=== PATIENT | female | born 1980 | race African-American/Black ===

== ENCOUNTER → 2016-08-27 | Outpatient (REF) | payer SELFPAY | LOC: M LAB REF 16:54 | PROVIDERS: ATTEND Advanced Practice Midwife | DX: Z11.3 Encounter for screening for infections with a predominantly sexual mode of transmission (principal) ==

== ENCOUNTER → 2016-12-26 | Outpatient (CLI) | payer OTHER ==
[~2016-12-26] MED LIST: HYDR12.55 PO; PERC5TAB12 PO; ZOFR4TAB3 PO
== END ==
LOC: M WUC 15:13
PROVIDERS: ATTEND Physician Assistant
DX: R10.30 Lower abdominal pain, unspecified (principal)

== ENCOUNTER → 2017-01-09 | Outpatient (CLI) | payer OTHER | LOC: M LAB 14:29 | PROVIDERS: ATTEND Advanced Practice Midwife | DX: N91.1 Secondary amenorrhea (principal) ==

== ENCOUNTER → 2017-01-23 | Outpatient (CLI) | payer OTHER ==
--- NOTE | 2017-01-23 09:47 | REP ---
Obstetric ultrasound, first trimester: The study is performed with transabdominal and endovaginal ultrasound assessment. There are two intrauterine gestational sacs. The larger of the two sacs contains a pole and yolk sac. There is no visible cardiac activity. The yolk sac is normal size measuring 3 mm in diameter. The pole measures 4 mm, corresponding 6 weeks 1 day gestational age. There is a small subchorionic hematoma at the inferior margin of this gestational sac measuring 0.7 x 0.8 x 0.6 cm. The second intrauterine gestational sac is the smaller of the two sacs. There is no pole or yolk sac within this second gestational sac. The mean sac diameter is 11.2 mm corresponding to 5 weeks 6 days gestational age. There is no associated subchorionic hematoma. The right ovary is normal size measuring 3.2 x 1 point and 92.6 cm. There is a 1.1 cm corpus luteum in the right ovary. The left ovary is normal size measuring 4.3 x 2.2 x 2.7 cm. There is a 1.4 mm echogenic focus in the left ovary. This is nonspecific, however, ectopic is not entirely excluded. No free fluid in the pelvis. Follow-up is recommended. Signed by Jaret Albert MD 01/23/2017 09:39 A
== END ==
LOC: M RAD 07:31
PROVIDERS: ATTEND Obstetrics & Gynecology
DX: Z34.81 Encounter for supervision of other normal pregnancy, first trimester (principal)

== ENCOUNTER → 2017-02-04 | Outpatient (CLI) | payer OTHER | LOC: M LAB 11:18 | PROVIDERS: ATTEND Obstetrics & Gynecology | DX: O02.1 Missed abortion (principal) ==

== ENCOUNTER 2017-02-05 18:30 | Emergency (ER) | payer OTHER ==
[~2017-02-05] VITALS: Ht 170.2 cm; Wt 104.5 kg
[2017-02-05 18:30] VITALS: BP 133/78
[2017-02-05] MEDS ORDERED: HYDR12.55 PO (18:41)
[2017-02-05] MEDS ORDERED: ONDANSETRON 4MG/2ML VIAL (J2405) IV ONE (19:15)
[2017-02-05] MEDS ORDERED: fentaNYL 100 MCG/2 ML INJECTION (J3010) IV ONE (19:15)
[2017-02-05] MEDS ORDERED: ZOFR4TAB3 PO (20:40)
[2017-02-05] MEDS ORDERED: PERC5TAB12 PO (20:40)
[2017-02-05] MEDS ORDERED: PERCOCET 5MG/325MG TAB PO ONE (20:45)
== END 2017-02-05 21:03 | disposition home or self-care (01) ==
LOC: M ED 18:30
DX: Z33.2 Encounter for elective termination of pregnancy (principal); I10 Essential (primary) hypertension; Z98.84 Bariatric surgery status; Z3A.00 Weeks of gestation of pregnancy not specified
CPT/HCPCS: 96374; 96375; 99283; J2405; J3010

== ENCOUNTER → 2017-09-17 | Outpatient (CLI) | payer MEDICAID ==
[2017-09-17 17:00] LABS: CHLAMYDIA DNA AMPLIFICATION NEGATIVE (NEGATIVE); GC DNA AMPLIFICATION NEGATIVE (NEGATIVE)
[2017-09-18 11:05] LABS: HEPATITIS B SURFACE ANTIGEN NEGATIVE (NEGATIVE)
[2017-09-18 11:18] LABS: HEPATITIS C VIRUS ABY INDEX < 0.0 INDEX (<0.8)
[2017-09-18 11:19] LABS: HEPATITIS B CORE ANTIBODY IGM NEGATIVE (NEGATIVE); HIV 1&2 SCREEN CENTAUR NEGATIVE (NEGATIVE)
[2017-09-18 11:20] LABS: HEPATITIS A ANTIBODY IGM NEGATIVE (NEGATIVE)
== END ==
LOC: M SMT 08:43
DX: Z11.3 Encounter for screening for infections with a predominantly sexual mode of transmission (principal)
CPT/HCPCS: 87340